=== PATIENT | female | born 1945 | race Hispanic/Latino ===

== ENCOUNTER 2020-12-02 05:37 | Day surgery (SDC) | payer OTHER ==
[2020-11-30 11:27] LABS: BASOPHILS % (AUTO) 0.3 % (0.0-5.0); EOSINOPHILS % (AUTO) 1.9 % (0.0-8.0); HEMATOCRIT 43.9 % (36-48); LYMPHOCYTES % (AUTO) 25.9 % (21.0-51.0); MEAN CORPUSCULAR HGB CONC 31.2 g/dL (32.0-36.0); MEAN CORPUSCULAR VOLUME 83.5 fL (79-99); MONOCYTES % (AUTO) 6.9 % (3.0-13.0); NEUTROPHILS % (AUTO) 64.7 % (40.0-77.0); PLATELET COUNT (AUTO) 162 K/uL (130-400); RED BLOOD CELL COUNT(AUTO) 5.26 MIL/uL (4.00-5.50); RED CELL DISTRIBUTION WIDTH 21.1 % (11.0-15.5); WHITE BLOOD COUNT (AUTO) 7.8 K/uL (4.8-10.8)
[2020-11-30 11:28] LABS: CREATININE 3.3 mg/dL (0.5-1.5)
[2020-11-30 11:50] LABS: INR 1.34 (0.85-1.15); PROTHROMBIN TIME 14.2 SEC (9.6-11.6)
[2020-11-30 11:52] LABS: PARTIAL THROMBOPLASTIN TIME 28.2 SEC (26.3-35.5)
[2020-12-01 10:05] VITALS: BP 143/67
[2020-12-02] VITALS (9 sets, daily range): BP systolic 126–160; BP diastolic 60–87
[~2020-12-02] VITALS: Ht 182.9 cm; Wt 86.2 kg
[~2020-12-02 05:37] MED LIST: AMIO200T44 PO; ASPI-1197 PO; CARV12.511 PO; FURO20TA4 PO; INSU3INS3 SQ; LOSA25TA41 PO; SIMV-43 PO
[2020-12-02] MEDS ORDERED: SODIUM CHLORIDE 0.9% 1000ML 1,000 ML IV ONE (06:18)
[2020-12-02] MEDS ORDERED: HEPARIN SODIUM 1000UNIT/ML 10ML VIAL ONE (07:36)
[2020-12-02] MEDS ORDERED: IOHEXOL 350 MG/ML 100ML INFUS..BTL IV ONE (07:37)
[2020-12-02] MEDS ORDERED: NITROGLYCERIN 2 MG/VIAL VIAL IV ONE (07:37)
[2020-12-02] MEDS ORDERED: MIDAZOLAM HCL 1 MG/ML 2ML VIAL ONE (07:37)
[2020-12-02] MEDS ORDERED: LIDOCAINE HCL 2% 20ML ONE (07:38)
[2020-12-02] MEDS ORDERED: FENTANYL CITRATE PF 50 MCG/1 ML 2ML VIAL ONE (07:38)
[2020-12-02] MEDS ORDERED: ACETAMINOPHEN-CODEINE 300/30MG TAB PO PRN (09:30)
[2020-12-02] MEDS ORDERED: ACETAMINOPHEN 325 MG TAB PO PRN (09:30)
== END 2020-12-02 13:00 | disposition home or self-care (01) ==
LOC: DAH 05:37
PROVIDERS: ATTEND Internal Medicine Cardiovascular Disease
DX: I25.119 Atherosclerotic heart disease of native coronary artery with unspecified angina pectoris (principal); I70.213 Atherosclerosis of native arteries of extremities with intermittent claudication, bilateral legs; I25.5 Ischemic cardiomyopathy; I70.92 Chronic total occlusion of artery of the extremities; E11.51 Type 2 diabetes mellitus with diabetic peripheral angiopathy without gangrene; E11.22 Type 2 diabetes mellitus with diabetic chronic kidney disease; I13.2 Hypertensive heart and chronic kidney disease with heart failure and with stage 5 chronic kidney disease, or end stage renal disease; N18.6 End stage renal disease; I50.22 Chronic systolic (congestive) heart failure; I48.0 Paroxysmal atrial fibrillation; E78.5 Hyperlipidemia, unspecified; Z99.2 Dependence on renal dialysis; Z79.4 Long term (current) use of insulin; Z79.82 Long term (current) use of aspirin; Z79.01 Long term (current) use of anticoagulants
CPT/HCPCS: 36246; 36415; 71045; 75625; 75716; 80048; 82948 ×2; 85025; 85610; 85730; 93005; 93458; A4215; A4216; A4221; A4222; A4223 ×2; A4606; A4663; C1760; C1769; C1894 ×2; J1644; J2250; J3010; J3490 ×2; J7030; Q9965 ×2; Q9967; 99156; 99157